=== PATIENT | female | born 1950 | race Caucasian/White ===

== ENCOUNTER 2018-03-21 08:27 | Emergency (ER) | payer OTHER ==
[~2018-03-21] VITALS: Ht 160 cm; Wt 66.2 kg
[2018-03-21 08:33] VITALS: Ht 160 cm; Wt 66.2 kg
[2018-03-21 11:54] VITALS: BP 126/68
== END 2018-03-21 11:54 | disposition home or self-care (01) ==
LOC: ED 08:27
DX: K62.89 Other specified diseases of anus and rectum (principal); K59.00 Constipation, unspecified; Z88.0 Allergy status to penicillin; Z88.1 Allergy status to other antibiotic agents; Z88.2 Allergy status to sulfonamides